=== PATIENT | male | born 1955 | race Caucasian/White ===

== ENCOUNTER 2019-04-23 11:00 | Outpatient (RCR) | payer OTHER | END 2019-05-23 | LOC: PT | DX: M25.511 Pain in right shoulder (principal); G89.29 Other chronic pain ==

== ENCOUNTER → 2021-07-16 | Outpatient (CLI) | payer MEDICARE, OTHER | LOC: VAS 15:30 → RAD 16:00 | DX: Z13.6 Encounter for screening for cardiovascular disorders (principal); M79.89 Other specified soft tissue disorders; M79.662 Pain in left lower leg ==

== ENCOUNTER → 2022-01-27 | Outpatient (CLI) | payer MEDICARE, OTHER ==
[~2022-01-27] VITALS: Ht 175.3 cm; Wt 89.1 kg
[2022-01-27 15:47] VITALS: BP 159/91
== END ==
LOC: AMSURD 15:31
DX: Z51.81 Encounter for therapeutic drug level monitoring (principal)
CPT/HCPCS: J1650

== ENCOUNTER → 2022-01-28 | Outpatient (CLI) | payer MEDICARE, OTHER | LOC: VAS 07:42 → RAD 07:45 → VAS 07:45 | DX: M79.662 Pain in left lower leg (principal); M79.89 Other specified soft tissue disorders ==

== ENCOUNTER → 2025-02-04 | Day surgery (SDC) | payer MEDICARE, OTHER ==
[~2025-02-04] MED LIST: fentaNYL 100 MCG/2 ML VIAL ONE
== END | disposition home or self-care (01) ==
LOC: MSO 07:15
DX: Z12.11 Encounter for screening for malignant neoplasm of colon (principal); K57.30 Diverticulosis of large intestine without perforation or abscess without bleeding; E66.9 Obesity, unspecified
CPT/HCPCS: G0121; 00812; J2704; J3010; J7120